=== PATIENT | female | born 1985 ===

== ENCOUNTER 2016-03-10 07:44 | Emergency (ER) | payer OTHER ==
[~2016-03-10] VITALS: Ht 165.1 cm; Wt 60.0 kg
[~2016-03-10 07:44] MED LIST: IBUP-1542 PO
[2016-03-10 08:01] VITALS: Ht 165.1 cm; Wt 60.0 kg
[2016-03-10] MEDS ORDERED: NAPR-260 PO (08:23)
--- NOTE | 2016-03-10 09:02 | ERD ---
DATE OF SERVICE: 03/10/2016 HISTORY OF PRESENT ILLNESS: The patient is a 30-year-old female coming in complaining of right wris t pain. The patient states it has been going on for a week. She has had no traumatic injury. The pain is localized over her right radius extending out her thumb. 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 She has also been ta tony [place] with no alleviation of symptoms. She has no numbness or tingling. She has no weakness. She is right hand dominant. PAST MEDICAL HISTORY: Denies. ALLERGIES: DENIES ALLERGIES TO MEDICATIONS. PAST SURGICAL HISTORY: Denies. HOSPITALIZATIONS: Denies. REVIEW OF SYSTEMS: A 12-point review of systems was done. Refer to HPI for positives; all other sy stems negative. PHYSICAL EXAMINATION VITAL SIGNS: Temperature is 98.5, pulse 83, blood pressure is 111/72, respiratory rate 18, O2 satur ation 100% on room air. Pain intensity 2/10. GENERAL: The patient is well-appearing, well-nourished, no acute distress. CHEST: Clear to auscultation bilaterally. There are no rales, wheezes or rhonchi. HEART: Regular rate and rhythm. No murmurs, clicks, rubs or gallops. No S3 or S4. SKIN: There is no apparent rash or petechia. The skin is warm and dry. EXTREMITIES: The patient has tenderness to palpation over the right radius extending down the thumb with a positive Lexie test. There is no numbness or tingling. The patient is neurovascularl y intact. Pulses intact. No snuffbox tenderness. Compartments are soft. DIAGNOSIS: De Quervain's tenosynovitis. MEDICAL DECISION MAKING: The patient's exam is concerning for de Quervain's tenosynovitis. I have low suspicion for acute fracture or dislocation, low suspicion for tendon or ligament rupture, and l ow suspicion for vascular injury. DISCHARGE: The patient is discharged stable. The patient is given a prescription for naproxen and told to rest her wrist to alleviate swelling of the tendon. The patient was given a note for work. All other questions answered at time of discharge. Discharge summary given at the time of departur e. The patient understood and complied with plan. Dictated By: YOSI CLAROS for CAMERON GRIDER/YURIDIA Conf#: [id number] [facility]#: [id number]
== END 2016-03-10 08:37 | disposition home or self-care (01) ==
LOC: FTE 07:44
DX: M65.4 Radial styloid tenosynovitis [de Quervain] (principal)
CPT/HCPCS: 99283